=== PATIENT | female | born 1985 | race Two or more races ===

== ENCOUNTER 2016-10-15 05:56 | Inpatient (IN) | payer MEDICAID ==
[~2016-10-15] VITALS: Ht 162.6 cm; Wt 77.8 kg
[2016-10-15 06:43] VITALS: BP 124/84; PULSE 89; RESP 18; Ht 162.6 cm; Wt 77.8 kg
[2016-10-15] MEDS ORDERED: PREN1TAB17 PO (06:45)
[2016-10-15] MEDS ORDERED: LACTATED RINGER'S 1,000 ML IV SCH (06:45)
[2016-10-15] MEDS ORDERED: FERR325C PO (06:45)
[2016-10-15] MEDS ORDERED: IBUPROFEN 600 MG TAB PO PRN (07:00)
[2016-10-15] MEDS ORDERED: OXYTOCIN 30 UNITS/LR 500 ML IV SCH ×2 (07:00)
[2016-10-15] MEDS ORDERED: OXYTOCIN 30 UNITS/LR 500 ML IV PRN ×2 (07:00→09:30)
[2016-10-15] MEDS ORDERED: LACTATED RINGER'S 1,000 ML IV PRN (07:00)
[2016-10-15] MEDS ORDERED: CARBOPROST 250 MCG INJ IM PRN ×2 (07:00→09:30)
[2016-10-15] MEDS ORDERED: BUTORPHANOL 2 MG INJ IV PRN (07:00)
[2016-10-15] MEDS ORDERED: LIDOCAINE 1% (MPF) 30 ML INJ INJ PRN (07:00)
[2016-10-15] MEDS ORDERED: METHYLERGONOVINE 0.2 MG INJ IM PRN ×2 (07:00→09:30)
[2016-10-15] MEDS ORDERED: MISOPROSTOL 200 MCG TAB PR PRN ×2 (07:00→09:30)
[2016-10-15 07:05] LABS: RED BLOOD COUNT 3.57 10^6/ul (4.20-5.40); WHITE BLOOD COUNT 10.5 10^3/ul (4.8-10.8)
[2016-10-15 07:06] LABS: BASOPHILS % 0.4 % (0.0-2.0); HEMATOCRIT 33.4 % (37.0-47.0); HEMOGLOBIN 11.5 g/dl (12.0-16.0); MEAN CORPUSCULAR HEMOGLOBIN 32.2 pg (29.0-33.0); MEAN CORPUSCULAR HGB CONC 34.4 g/dl (32.0-37.0); MEAN CORPUSCULAR VOLUME 93.6 fl (82.0-101.0); MEAN PLATELET VOLUME 9.8 fl (7.4-10.4); MONOCYTES % 7.9 % (0.0-11.0); NEUTROPHILS % 69.7 % (39.0-77.0); PLATELET COUNT 158 10^3/UL (140-440); RED CELL DISTRIBUTION WIDTH 13.6 % (11.5-14.5)
[2016-10-15 07:07] LABS: EOSINOPHILS # 0.1 10^3/ul (0.0-0.5); LYMPHOCYTES # 2.1 10^3/ul (0.8-2.9); MONOCYTE # 0.8 10^3/ul (0.3-0.9); NEUTROPHIL # 7.3 10^3/ul (1.6-7.5)
[2016-10-15 07:23] LABS: INR 0.91; PROTIME 12.3 Sec (12.2-14.2)
[2016-10-15 07:24] LABS: PARTIAL THROMBOPLASTIN TIME 28.4 Sec (25.0-35.0)
--- NOTE | 2016-10-15 07:57 | HP ---
Date/Time of Note Date/Time of Note DATE: 10/15/16 TIME: 07:53 OB - History Hx of Present Chief Complaint: contractions Estimated Due Date: Oct 16, 2016 : 2 Para: 1 Spontaneous : 0 Therapeutic : 0 Care: Good Care Ultrasounds: Normal mid trimester US Obstetrical Complications: None Medical Complications: None Past Family/Social History * Past Medical, Surgical, Family and Obstetric Histories reviewed from chart. GBS Status: Negative OB Admission Exam Vital Signs Vital Signs Vital Signs Date Time Temp Pulse Resp B/P Pulse Ox O2 Delivery O2 Flow Rate FiO2 10/15/16 06:43 98.2 89 18 124/84 Room Air Physical Exam HEENT: WNL Heart: Rhythm Normal Lungs: Clear Abdomen: WNL Extremities: Normal Reflexes: Normal Cervical Dilatation: 5cm Effacement: 100% Station: -1 Membranes: Intact Accelerations: Accelerations Present Contractions on Admission: < 5 Minutes Apart Last 72 hours Lab Results CBC & BMP 10/15/16 06:40 OB Assessment/Plan Reason for admission: active labor Plan: Expectant Management KEITH CAMERON MD Oct 15, 2016 07:57
--- NOTE | 2016-10-15 07:59 | LDN ---
Date/Time of Note Date/Time of Note DATE: 10/15/16 TIME: 07:57 Delivery Summary Placenta Delivered: Spontaneously Meconium: none Perineum intact?: Yes Perineal laceration repair: Vaginal laceration repaired with 3-0 Vicryl. Anesthesia type: Local Estimated blood loss: 350 Sponge & Needle done & correct: Yes All needle counts correct: Yes Any foreign bodies felt in the: No Problems: Infant Delivery Information Sex Sex: female Apgars 1 Minute: 9 5 Minute: 9 Suctioning Nose & mouth suctioned at homer: Yes Delee suction performed: No Umbilical Cord Umbilical cord with: 3 Vessels Cord presentations: no nuchal cord Cord Blood was obtained: Yes Mother & Baby Disposition Disposition Mom & Baby to Maternity; Good: Yes KEITH CAMERON MD Oct 15, 2016 07:59
[2016-10-15] MEDS: LACTATED RINGER'S 1,000 ML IV* SCH ×2 (09:30→17:30)
[2016-10-15] MEDS ORDERED: DIBUCAINE 1% 30 GM OINT PR PRN (09:30)
[2016-10-15] MEDS ORDERED: ACETAMINOPHEN 325 MG TAB PO PRN (09:30)
[2016-10-15] MEDS ORDERED: WITCH HAZEL/GLYCERIN PAD PR PRN (09:30)
[2016-10-15 09:55] VITALS: BP 121/69; PULSE 89; RESP 18
[2016-10-15 12:30] VITALS: BP 111/66; PULSE 78; RESP 18
[2016-10-15] MEDS: BENZOCAINE 20% 56 ML SPRAY TOP PRN (12:37)
[2016-10-15] MEDS: IBUPROFEN 600 MG TAB PO SCH ×3 (12:37→23:35)
[2016-10-15] MEDS: ACETAMINOPHEN/CODEINE #3 TAB PO PRN (13:59)
[2016-10-15 16:26] VITALS: BP 117/66; PULSE 90; RESP 18
[2016-10-15 19:50] VITALS: BP 103/57; PULSE 94; RESP 20
[2016-10-15] MEDS: SENNA/DOCUSATE NA (8.6MG/50MG) TAB PO SCH (21:11)
[2016-10-15 23:30] VITALS: BP 117/58; PULSE 97; RESP 18
[2016-10-16 04:30] VITALS: BP 101/59; PULSE 84; RESP 18
[2016-10-16] MEDS: IBUPROFEN 600 MG TAB PO SCH ×3 (05:42→18:00)
[2016-10-16 08:00] VITALS: BP 90/55; PULSE 86; RESP 18
[2016-10-16 08:42] LABS: BASOPHILS % 0.2 % (0.0-2.0); EOSINOPHILS # 0.1 10^3/ul (0.0-0.5); HEMATOCRIT 23.2 % (37.0-47.0); HEMOGLOBIN 7.8 g/dl (12.0-16.0); LYMPHOCYTES # 2.3 10^3/ul (0.8-2.9); LYMPHOCYTES % 22.1 % (15.0-51.0); MEAN CORPUSCULAR HEMOGLOBIN 31.8 pg (29.0-33.0); MEAN CORPUSCULAR HGB CONC 33.6 g/dl (32.0-37.0); MEAN CORPUSCULAR VOLUME 94.7 fl (82.0-101.0); MEAN PLATELET VOLUME 10.1 fl (7.4-10.4); MONOCYTE # 0.7 10^3/ul (0.3-0.9); MONOCYTES % 6.6 % (0.0-11.0); NEUTROPHIL # 7.3 10^3/ul (1.6-7.5); NEUTROPHILS % 69.3 % (39.0-77.0); PLATELET COUNT 142 10^3/UL (140-415); RED BLOOD COUNT 2.45 10^6/ul (4.20-5.40); RED CELL DISTRIBUTION WIDTH 13.7 % (11.5-14.5); WHITE BLOOD COUNT 10.6 10^3/ul (4.8-10.8)
[2016-10-16] MEDS: SENNA/DOCUSATE NA (8.6MG/50MG) TAB PO SCH ×2 (09:32→21:26)
[2016-10-16 16:00] VITALS: BP 90/56; PULSE 90; RESP 18
--- NOTE | 2016-10-16 18:47 | PN ---
Date/Time of Note Date/Time of Note DATE: 10/16/16 TIME: 18:45 OB Subjective Subjective Subjective Post day 1 Patient is doing well, Ambulatory She is afebrile Abdomen is soft , Fundus is firm Moderate amount of lochia Breasts are soft, Nipples are intact No calf tenderness. Perineum is healing well. Breast feeding the new born. 30 Laboratory Tests Test 10/16/16 08:20 Basophils # 0.010^3/ul Basophils % 0.2% Eosinophils # 0.110^3/ul Eosinophils % 1.0% Hematocrit 23.2% Hemoglobin 7.8g/dl Lymphocytes # 2.310^3/ul Lymphocytes % 22.1% Mean Corpuscular Hemoglobin 31.8pg Mean Corpuscular Hemoglobin Concent 33.6g/dl Mean Corpuscular Volume 94.7fl Mean Platelet Volume 10.1fl Monocytes # 0.710^3/ul Monocytes % 6.6% Neutrophils # 7.310^3/ul Neutrophils % 69.3% Nucleated Red Blood Cells # 0.010^3/ul Nucleated Red Blood Cells % 0.0/100WBC Platelet Count 09930^3/UL Red Blood Count 2.4510^6/ul Red Cell Distribution Width 13.7% White Blood Count 10.610^3/ul Current Medications Medications (Trade) Dose Ordered Sig/Yeni Route PRN Reason Start Time Stop Time Status Last Admin Dose Admin Lactated Ringer's (Lr) 1,000 ml @ 125 mls/hr Q8H IV 10/15/16 06:45 10/15/16 09:35 DC 10/15/16 06:51 Butorphanol Tartrate (Stadol) 2 mg Q2H PRN IV PAIN 10/15/16 07:00 10/15/16 09:35 DC 10/15/16 07:00 Lidocaine 30 ml 30 ml ONCE PRN INJ EPISIOTOMY/TEARING 10/15/16 07:00 10/15/16 09:35 DC Oxytocin/Lactated Ringer's 500 ml @ 125 mls/hr ONCE -MAY REPEAT X1 IV 10/15/16 07:00 10/15/16 09:35 DC 10/15/16 07:35 Oxytocin/Lactated Ringer's 500 ml @ 125 mls/hr ONCE IV 10/15/16 07:00 10/15/16 09:35 DC 10/15/16 07:51 Ibuprofen 600 mg 600 mg ONCE PRN PO Mild Pain (Pain Score 1-3) 10/15/16 07:00 10/15/16 09:35 DC 10/15/16 09:03 Lactated Ringer's 1,000 ml @ 2,000 mls/hr Q30M PRN IV PRE-EPIDURAL BOLUS 10/15/16 07:00 10/15/16 09:35 DC Oxytocin/Lactated Ringer's 500 ml @ 0 mls/hr ONCE PRN IV For Hemorrhage Management 10/15/16 07:00 10/15/16 09:35 DC Methylergonovine Maleate (Methergine) 0.2 mg ONCE PRN IM VAGINAL BLEEDING 10/15/16 07:00 10/15/16 09:35 DC Carboprost Tromethamine (Hemabate) 250 mcg ONCE PRN IM VAGINAL BLEEDING 10/15/16 07:00 10/15/16 09:35 DC Misoprostol 1000 mcg 1,000 mcg ONCE PRN CO VAGINAL BLEEDING 10/15/16 07:00 10/15/16 09:35 DC Lactated Ringer's (Lr) 1,000 ml @ 125 mls/hr Q8H IV* 10/15/16 09:30 10/15/16 17:37 DC 10/15/16 09:30 Ibuprofen (Motrin) 600 mg Q6 PO 10/15/16 12:00 10/16/16 05:42 Acetaminophen (Tylenol Tab) 650 mg Q4H PRN PO PAIN LEVEL 1-5 10/15/16 09:30 Acetaminophen/ Codeine Phosphate (Tylenol No.3) 1 tab Q4H PRN PO PAIN LEVEL 1-5 10/15/16 09:30 10/15/16 13:59 Senna/Docusate Sodium (Senokot-S) 1 tab BID PO 10/15/16 21:00 10/16/16 09:32 Witch Etelvina/ Glycerin (Tucks Pads) 1 pad BEDSIDE MEDICATION PRN CO HEMORRHOID/EPISIOTMY PAIN 10/15/16 09:30 10/15/16 12:38 Benzocaine (Dermoplast Chili) 1 spray BEDSIDE MEDICATION PRN TOP HEMORRHOID/EPISIOTMY PAIN 10/15/16 09:30 10/15/16 12:37 Dibucaine (Nupercainal) 1 applic BEDSIDE MEDICATION PRN CO HEMORRHOID/EPISIOTMY PAIN 10/15/16 09:30 Diphtheria/ Tetanus/Acell Pertussis 0.5 ml 0.5 ml ONCE ONCE IM* 10/17/16 09:00 10/17/16 09:01 Oxytocin/Lactated Ringer's 500 ml @ 0 mls/hr ONCE PRN IV For Hemorrhage Management 10/15/16 09:30 Methylergonovine Maleate (Methergine) 0.2 mg ONCE PRN IM VAGINAL BLEEDING 10/15/16 09:30 Carboprost Tromethamine (Hemabate) 250 mcg ONCE PRN IM VAGINAL BLEEDING 10/15/16 09:30 Misoprostol (Cytotec) 1,000 mcg ONCE PRN CO VAGINAL BLEEDING 10/15/16 09:30 KP PANDEY MD Oct 16, 2016 18:47
[2016-10-16 20:00] VITALS: BP 98/52; PULSE 88; RESP 18
[2016-10-16] MEDS: LANOLIN 7 GM TUBE TOP PRN (20:07)
[2016-10-16] MEDS: ACETAMINOPHEN/CODEINE #3 TAB PO PRN (20:10)
[2016-10-17] MEDS: IBUPROFEN 600 MG TAB PO SCH ×4 (00:25→18:23)
[2016-10-17 03:45] VITALS: BP 97/56; PULSE 76; RESP 18
[2016-10-17 08:20] VITALS: BP 115/62; PULSE 75; RESP 17
[2016-10-17] MEDS: SENNA/DOCUSATE NA (8.6MG/50MG) TAB PO SCH (09:00)
[2016-10-17] MEDS ORDERED: DIPHTH/TET/ACEL PERTUSS (ADULT) 0.5 ML VIAL IM* ONE (09:00)
[2016-10-17] MEDS: LANOLIN 7 GM TUBE TOP PRN (11:48)
[2016-10-17 16:30] VITALS: BP 119/69; PULSE 90; RESP 16
--- NOTE | 2016-10-17 17:57 | DS ---
Date/Time of Note Date/Time of Note DATE: 10/17/16 TIME: 17:55 Obstetrical Discharge Record Final Diagnosis Final Diagnosis: Term delivered Vaginal Delivery Obstetrical Delivery: Spontaneous Condition on Discharge Physical Assessment Voiding: Yes Bowel Movement: Yes Breast: Soft, non-tender Fundus: Firm Calf Tenderness: No Patient Condition: Stable KEITH CAMERON MD Oct 17, 2016 17:57
[2016-10-17] MEDS ORDERED: MEASLES,MUMPS,RUBELLA VACCINE INJ SC* ONE (18:00)
[2016-10-17] MEDS: BENZOCAINE 20% 56 ML SPRAY TOP PRN (18:23)
== END 2016-10-17 18:35 | disposition home or self-care (01) | DRG 775 ==
LOC: OBT 05:56 → L-D 05:57 → OBT 06:26 → L-D 06:27 → PP1 09:46
PROVIDERS: ADMIT Obstetrics & Gynecology; ATTEND Obstetrics & Gynecology
PROC: 10E0XZZ Delivery of Products of Conception, External Approach (ICD-10-PCS; principal; 2016-10-15)
PROC: 0UQGXZZ Repair Vagina, External Approach (ICD-10-PCS; 2016-10-15)
DX: O71.4 Obstetric high vaginal laceration alone (principal); Z37.0 Single live birth; Z3A.00 Weeks of gestation of pregnancy not specified
CPT/HCPCS: 85025; 85610; 85730; 86592; 86900; 86901; 87340; 90715; G0463; J2590; J7120

== ENCOUNTER 2017-06-03 09:22 | Emergency (ER) | payer MEDICAID, OTHER ==
[~2017-06-03] VITALS: Ht 160 cm; Wt 71.0 kg
[~2017-06-03 09:22] MED LIST: FERR325C PO; PREN1TAB17 PO
[2017-06-03 09:24] VITALS: Ht 160 cm; Wt 71.0 kg
[2017-06-03] MEDS ORDERED: IBUPROFEN 600 MG TAB PO ONE (10:30)
--- NOTE | 2017-06-03 10:38 | ERD ---
ER Documentation Chief Complaint Date/Time DATE: 06/03/17 TIME: 10:30 Chief Complaint r. shoulder pain x this am HPI Patient is a 32-year-old female with a past medical history of shoulder dislocation in 2008 who presents to the emergency department for concerns of right shoulder pain which started this morning. Patient states that she is unable to lift her arm up. She does lift her baby's car seat daily. Patient denies any falls or trauma. Patient denies any fevers, chills, nausea, vomiting , chest pain, shortness breath, diaphoresis or loss consciousness. Patient denies taking any medication. ROS All systems reviewed and are negative except as per history of present illness. Medications Home Meds Reported Medications Ferrous Sulfate (Iron) 325 Mg Capsule.er, 325 MG PO DAILY, CAP 10/15/16 Vit-Iron Fumarate-FA ( Tablet) 1 Each Tablet, 1 TAB PO DAILY, TAB 10/15/16 Allergies Allergies: Coded Allergies: No Known Allergies (Verified Allergy, Unknown, 10/15/16) PMhx/Soc Medical and Surgical Hx: pt denies Medical Hx, pt denies Surgical Hx Hx Alcohol Use: No Hx Substance Use: No Hx Tobacco Use: No Smoking Status: Never smoker Physical Exam Vitals Vital Signs Date Time Temp Pulse Resp B/P Pulse Ox O2 Delivery O2 Flow Rate FiO2 06/03/17 09:24 97.8 72 19 131/93 100 Physical Exam GENERAL: Well-developed, well-nourished female. Appears in no acute distress. HEAD: Normocephalic, atraumatic. EYES: Pupils are equally reactive bilaterally. EOMs grossly intact. No conjunctival erythema. ENT: Moist mucous membranes. No uvula deviation. No kissing tonsils. NECK: Supple. No meningismus. Normal range of motion of the neck. + R Trap muscle tenderness and spasms. LUNG: Clear to auscultation bilaterally. No rhonchi, wheezing, rales or coarse breath sounds. HEART: Regular rate and rhythm. No murmurs, rubs or gallops. EXTREMITIES: Equal pulses bilaterally. No peripheral clubbing, cyanosis or edema. No unilateral leg swelling. NEUROLOGIC: Alert and oriented. Moving all four extremities without any difficulty. Normal speech. Steady gait. SKIN: Normal color. Warm and dry. No rashes or lesions. RIGHT: No obvious deformity, ecchymosis or swelling. Skin intact. No bursal swelling. Increased range of motion of the shoulder secondary to pain. Tender to palpation of the posterior shoulder.. Non-tender to palpation to humerus, elbow, forearm. Sensation intact to light touch. Neurovascularly intact. (Able to give thumbs up, make an ok sign, cross digits 2 and 3, thumb to pinky opposition. 2+ RP.) No snuffbox tenderness. Results 24 hrs Current Medications Medications (Trade) Dose Ordered Sig/Yeni Route PRN Reason Start Time Stop Time Status Last Admin Dose Admin Ibuprofen (Motrin) 600 mg ONCE ONCE PO 06/03/17 10:30 06/03/17 10:31 DC 06/03/17 10:33 Procedures/MDM ED COURSE: The patient was stable throughout ED course. I kept the patient and/or family informed of laboratory and diagnostic imaging results throughout the ED course. DIAGNOSTIC IMAGING: Read by radiologist. Patient: JEANNE CORONA : 1985 Age: 32 Sex: F MR #: [id number] DOS: 06/03/17 1029 Ordering MD: TATUM DUNLAP PA-C Location: [facility] Room/Bed: PROCEDURE: XR right shoulder. CLINICAL INDICATION: Pain TECHNIQUE: Axillary, Internal and external rotation views of the right shoulder were performed. COMPARISON: None. FINDINGS: There is normal osseous mineralization and alignment. No acute fracture or osseous lesion is identified. There are normal joints without evidence of arthritis or dislocation. The soft tissues are unremarkable. RPTAT: AA IMPRESSION: Unremarkable right shoulder. .Rosalino Emery MD, MD Date Time Electronically viewed and signed by .Rosalino Emery MD, MD on 06/03/2017 11: 52 .S/ CC: TATUM DUNLAP PA-C . PROCEDURES: None. MEDICATIONS GIVEN: Ibuprofen Patient tolerated medication well with no adverse reactions. Patient reported improvement in pain. MEDICAL DECISION MAKING: This is a 32-year-old female who presents with right shoulder pain 1 day. Patient does admit to history of a dislocated shoulder in 2008. Patient reports lifting her baby's car seat daily.. Vital signs were reviewed. Patient was afebrile. Imaging was unremarkable. At this time the patient's presentation is most consistent with shoulder pain. She was advised to use warm compresses. Patient advised on RICE therapy. Low Suspicion for shoulder dislocation, humerus fracture, septic joint, lateral epicondylitis, medial epicondylitis, olecranon bursitis, osteomyelitis, ACS, or compartment syndrome. PRESCRIPTIONS: Ibuprofen DISCHARGE: At this time, patient is stable for discharge and outpatient management. Patient was given a copy of all imaging studies obtained today. RICE therapy and ROM exercises were advised to avoid stiffness. I have instructed the patient to follow-up with his/her primary care physician in 1-2 days. I have discussed with the patient the possibility of needing to see an branch specialist for further workup and imaging if the pain persists. I have instructed the patient to promptly return to the ER for any new or worsening symptoms including increased pain, swelling, redness, warmth or fever. The patient and/or family expressed understanding of and agreement with this plan. All questions were answered. Home care instructions were provided. Disclaimer: Inadvertent spelling and grammatical errors are likely due to EHR/ dictation software use and do not reflect on the overall quality of patient care. Also, please note that the electronic time recorded on this note does not necessarily reflect the actual time of the patient encounter. Departure Diagnosis: Primary Impression: Shoulder pain Chronicity: acute Laterality: right Qualified Code: M25.511 - Acute pain of right shoulder Condition: Stable Additional Instructions: Able to rule out any ligament or tendon injuries at this time. Patient may need to obtain an MRI and an outpatient basis. Patient may need to see an branch specialist. Return to the emergency department for any new or worsening symptoms including but not limited to severe pain, nausea, vomiting, chest pain, shortness of breath, loss consciousness. Follow up with your primary care physician in the next 1-2 days. TATUM DUNLAP PA-C Jun 03, 2017 10:38
--- NOTE | 2017-06-03 11:53 | RADRPT ---
PROCEDURE: XR right shoulder. CLINICAL INDICATION: Pain TECHNIQUE: Axillary, Internal and external rotation views of the right shoulder were performed. COMPARISON: None. FINDINGS: There is normal osseous mineralization and alignment. No acute fracture or osseous lesion is identified. There are normal joints without evidence of arthritis or dislocation. The soft tissues are unremarkable. RPTAT: AA IMPRESSION: Unremarkable right shoulder. .Rosalino Emery MD, MD Date Time Electronically viewed and signed by .Rosalino Emery MD, on 06/03/2017 11:52 .S/
[2017-06-03] MEDS ORDERED: IBUP-1542 PO (11:57)
[2017-06-03 12:18] VITALS: BP 128/76; PULSE 72
== END 2017-06-03 12:19 | disposition home or self-care (01) ==
LOC: FTE 09:22
DX: M25.511 Pain in right shoulder (principal)
CPT/HCPCS: 73030; Z7502; Z7610

== ENCOUNTER 2017-11-14 10:50 | Emergency (ER) | END 2017-11-14 12:42 | disposition home or self-care (01) ==